=== PATIENT | male | born 1940 | race Caucasian/White ===

== ENCOUNTER → 2025-06-03 10:13 | Outpatient (REF) | payer MEDICARE, OTHER, SELFPAY ==
[2025-06-03] VITALS (7 sets, daily range): BP systolic 66–151; BP diastolic 61–80
[2025-06-03 10:47] LABS: Hematocrit 42.1 % (39.0-52.0); Hemoglobin 14.4 g/dL (13.0-18.0); Mean Corp Hgb Conc. 34.2 g/dL (33.0-37.0); Mean Corpuscular Volume 94.0 fL (80.0-94.0); Nucleated Red Blood Cells % 0 % (-); Platelet Count 210 10^3/uL (130-400); Red Cell Dist. Width 14.4 % (11.5-14.5)
[2025-06-03 11:04] LABS: INR 2.85; PT 29.8 Sec (11.4-14.6)
[2025-06-03 11:21] LABS: Troponin I < 0.012 ng/ml
[2025-06-03 11:22] LABS: ALT (SGPT) 26 U/L (0-50); AST (SGOT) 26 U/L (17-59); Albumin 4.6 g/dl (3.5-5.0); Blood Urea Nitrogen 14 mg/dl (9-20); Calcium 10.3 mg/dl (8.4-10.2); Carbon Dioxide 28 mmol/L (22-30); Chloride 100 mmol/L (98-107); Estimated Creatinine Clearance 88 ml/min; Glucose 105 mg/dl (70-99); Potassium 4.6 mmol/L (3.5-5.1); Sodium 136 mmol/L (135-145); Total Protein 7.3 g/dl (6.3-8.2); eGFR > 60.00
[2025-06-03 11:23] LABS: Alkaline Phosphatase 74 U/L (38-126)
[2025-06-03] MEDS: ANCEF 10 IV (11:53)
== END ==
LOC: RADI 10:13
PROVIDERS: ATTENDING PHYSICIAN Internal Medicine Hematology & Oncology; FAMILY PHYSICIAN Family Medicine; REFERRING PHYSICIAN Physician Assistant
DX: C44.329 Squamous cell carcinoma of skin of other parts of face (principal); Z79.01 Long term (current) use of anticoagulants; Z79.899 Other long term (current) drug therapy
CPT/HCPCS: 36561; 76937; 77001; 80053; 82248; 82550; 83880; 84443; 84484; 85025; 85610; 93005; 99152; 99153; C1788

== ENCOUNTER → 2025-06-13 08:01 | Outpatient (REF) | payer MEDICARE, OTHER, SELFPAY | LOC: WOUND 08:01 | PROVIDERS: ATTENDING PHYSICIAN Surgery | DX: S11.90XA Unspecified open wound of unspecified part of neck, initial encounter (principal); C44.92 Squamous cell carcinoma of skin, unspecified; C77.0 Secondary and unspecified malignant neoplasm of lymph nodes of head, face and neck; I25.10 Atherosclerotic heart disease of native coronary artery without angina pectoris; Z95.1 Presence of aortocoronary bypass graft; Z87.828 Personal history of other (healed) physical injury and trauma; X58.XXXA Exposure to other specified factors, initial encounter | CPT/HCPCS: 99205 ==

== ENCOUNTER 2025-06-13 08:41 | Emergency (ER) | payer MEDICARE, OTHER, SELFPAY ==
[2025-06-13 08:49] VITALS: BP 127/71
--- NOTE | 2025-06-13 09:43 | ED.GENMED ---
History of Present Illness
General
Chief Complaint: Wound Check/Suture Removal
Source: patient
Exam Limitations: none
Time Seen by Provider: 06/13/25 09:26
Nursing documentation reviewed up to this point in time: agreed with
History of Present Illness
History of Present Illness:
Note:
CHIEF COMPLAINT(S)
Wound that is oozing serous fluid.
HISTORY OF PRESENT ILLNESS
The patient is an 85-year-old male with a history of cancer which has resulted in a wound that has been oozing serous fluid. The patient reported that the lump started at approximately three centimeters and has become swollen. The wound has
previously been packed, and it was noted to have eroded tissue believed to be associated with cancer. The patient described the fluid as being 'serous' and noted that sometimes the fluid appeared as old blood. The recent treatment included
completing a week of immunotherapy. The patient monitors his own International Normalized Ratio (INR), and the most recent check showed a value of 2.8.
ADDITIONAL HISTORY OBTAINED FROM SOURCES OTHER THAN THE PATIENT
Dr. Sparks had previously packed the wound and suggested that the tools available limited further intervention. The patients spouse helps with changing the dressing and had noticed a sponge layer at the bottom of the dressing, which possibly
contributed to the disturbance and current oozing.
PHYSICAL EXAM
General: Alert, no acute distress.
Skin: Presenting wound is packed with no active bleeding.
Head: Normocephalic, atraumatic.
Neck: Supple.
Eye, Ears, Nose, Mouth, and Throat: Oral mucosa moist.
Cardiovascular: Normal peripheral perfusion, No edema.
Respiratory: Respirations are non-labored.
Gastrointestinal: Abdomen nondistended.
Back: Normal range of motion, Normal alignment.
Musculoskeletal: Normal range of motion, normal strength.
Neurological: Alert and oriented to person, place, time, and situation, No focal neurological deficit observed.
Psychiatric: Cooperative, appropriate mood & affect.
PLAN
The plan is to check the patients INR levels and monitor the site of the wound. Additional blood work will be conducted. The healthcare provider will assess if any changes in treatment or further interventions are necessary based on the test results.
DIFFERENTIAL DIAGNOSIS
The Differential Diagnosis includes, in no particular order and is not limited to:
1. Infection at the wound site
2. Cancerous erosion or progression
3. Hemorrhage or hematoma formation
4. Seroma
5. Lymphatic drainage disorder
6. Coagulopathy resulting from warfarin therapy
7. Poor wound healing due to underlying cancer
8. Skin necrosis or ulceration
9. Reaction to immune therapies or dressing materials
10. Dermatitis or other inflammatory skin condition
CARE-UPDATE
06/13/25 - 13:33
The patient presented with an oozing wound from the right neck mass. Bleeding was controlled, and the patient remained stable under observation in the ED. Discharge was planned with instructions to follow up with wound care specialists for further
management.
Disposition:
SUMMARY OF ENCOUNTER
The patient presented to the emergency department with an oozing wound from the right shoulder, believed to be associated with cancer. The wound care involved previous packing, and it was noted to have eroded tissue. The patient recently completed a
week of immunotherapy, and the most recent INR was 2.8. The wounds oozing was managed in the department, with bleeding controlled and the patient remaining stable under observation.
DISPOSITION
Discharge.
ASSESSMENT
The patients wound on the right shoulder is likely related to cancerous erosion, with the possibility of infection or poor wound healing due to underlying conditions.
PLAN
The plan includes monitoring the wound site and checking INR levels. Additional blood work may be conducted to assess the condition further. The patient will follow up with wound care specialists for ongoing management.
INDEPENDENT REVIEW OF LABS AND INTERPRETATION OF TESTS
My independent review of CBC is stable.
PATIENT EDUCATION AND COUNSELING
The patient was given return precautions and advised on the importance of follow-up with wound care specialists for further management.
FOLLOW-UP INSTRUCTIONS
The patient is instructed to follow up with wound care specialists and to return to the emergency department if symptoms worsen or new symptoms arise.
MEDICAL DECISION MAKING
Chronic conditions affecting care: History of cancer, possibly related to the wound condition.
-Complexity of Data Reviewed: The differential diagnosis considered includes infection at the wound site, cancerous erosion or progression, hemorrhage or hematoma formation, seroma, lymphatic drainage disorder, coagulopathy resulting from warfarin
therapy, poor wound healing due to underlying cancer, skin necrosis or ulceration, and reaction to immune therapies or dressing materials.
-Data:
Category 1: Non-emergency department records were reviewed, and the patients outpatient INR records were examined.
Category 2: Clinical information was obtained from the patients spouse, noting the condition of the dressing and wound.
-Risk: Consideration of Admission/Observation: Escalation of care including admission/observation was considered given the complexity and risk of the patients presenting complaint, exam findings, and/or their underlying comorbidities. However,
ultimately, the patient is safe for outpatient management with close follow-up. Reasoning: Work-up reassuring, does not reveal any acute life/organ-threatening processes, patients symptoms well controlled upon reevaluation, reexamination is
reassuring, vitals are stable, patient agreeable with discharge, reliable for follow-up.
DIAGNOSIS
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 Possible infection of the skin and subcutaneous tissue (ICD-10: L08.9).
Phy Exam
Physical Exam
Physical Exam:
.
Course
Orders/Labs/Results
Orders:
Orders
06/13/25 10:33
Complete Blood Count/With Diff Urgent
Prothrombin Time Urgent
Abnormal Lab Results
06/13/25
10:33
WBC 11.7 H 10^3/uL
(4.8-10.8)
RBC 4.41 L 10^6/uL
(4.70-6.10)
MCH 32.0 H pg
(27.0-31.0)
RDW 14.8 H %
(11.5-14.5)
Absolute Neuts (auto) 9.6 H 10^3/uL
(1.4-6.5)
Absolute Lymphs (auto) 1.0 L 10^3/uL
(1.2-3.4)
Absolute Monos (auto) 0.9 H 10^3/uL
(0.1-0.6)
Neutrophils % 82.2 H %
(42.2-75.2)
Lymphocytes % 8.5 L %
(20.5-51.1)
PT 34.5 H Sec
(11.4-14.6)
06/13/25 10:33
Vital Signs
Initial and Last Documented VS:
Initial Vital Signs
Temp Pulse Resp BP Pulse Ox
98.1 F 75 18 127/71 98
06/13/25 08:49 06/13/25 08:49 06/13/25 08:49 06/13/25 08:49 06/13/25 08:49
Last Documented Vital Signs
Temp Pulse Resp BP Pulse Ox
98.1 F 75 18 127/71 98
06/13/25 08:49 06/13/25 08:49 06/13/25 08:49 06/13/25 08:49 06/13/25 09:44
*Pulse Oximetry
SaO2: 98
Oxygen Mode of Delivery: Room air
Patient hypoxic: no
*Critical Care Note
Total Time (30-74mins, 75-104mins- exclusive of procedures): Not Applicable
ED Attending Note
-
Portions of this chart may have been created with voice recognition software.� Occasional wrong word or��sound alike� substitutions may have occurred due to the inherent limitations of voice recognition software.
Discharge Plan
Departure
Patient Disposition: Home (Routine Discharge)
Date of Disposition: 06/13/25
Time of Disposition: 13:20
Patient with high blood pressure during this ER visit?: Yes
Condition: Good
Discharge Problem:
Hemorrhage from wound
Instructions: Wound care - ED (DC), BLOOD PRESSURE
Prescriptions:
No Action
atorvastatin 80 mg Tablet
80 mg PO QPM
clopidogrel [Plavix] 75 mg Tablet
75 mg PO DAILY
warfarin 3 mg Tablet
3 mg PO DAILY
sotalol 120 mg Tablet
120 mg PO BID
gabapentin 300 mg Tablet
600 mg PO TID
Referrals:
Benjie Turner MD [Provider Group] - Call in 1-3 days for appt
Mary Johnson DO [Family Provider, Family Practice] - Call in 1-3 days for appt
Interventions
Interventions:
*Risk Screen - Suicide Last Done: 06/13/25 08:49
Discharge Date and Time
Print Language: CROATIAN
[2025-06-13 10:40] LABS: Hematocrit 41.2 % (39.0-52.0); Hemoglobin 14.1 g/dL (13.0-18.0); Mean Corp Hgb Conc. 34.2 g/dL (33.0-37.0); Mean Corpuscular Volume 93.4 fL (80.0-94.0); Nucleated Red Blood Cells % 0 % (-); Platelet Count 239 10^3/uL (130-400); Red Cell Dist. Width 14.8 % (11.5-14.5)
[2025-06-13 10:51] LABS: INR 3.45; PT 34.5 Sec (11.4-14.6)
[2025-06-13 12:00] VITALS: BP 134/74
[2025-06-13 13:57] VITALS: BP 129/86
== END 2025-06-13 13:57 | disposition home or self-care (01) ==
LOC: EMR 08:41
PROVIDERS: EMERGENCY PHYSICIAN Emergency Medicine; FAMILY PHYSICIAN Family Medicine
DX: S41.001A Unspecified open wound of right shoulder, initial encounter (principal); X58.XXXA Exposure to other specified factors, initial encounter
CPT/HCPCS: 99283; 85025; 85610

== ENCOUNTER → 2025-07-01 16:20 | Outpatient (REF) | payer MEDICARE, OTHER, SELFPAY ==
[2025-07-01 15:14] LABS: Hematocrit 37.2 % (39.0-52.0); Hemoglobin 12.5 g/dL (13.0-18.0); Mean Corp Hgb Conc. 33.6 g/dL (33.0-37.0); Mean Corpuscular Volume 95.9 fL (80.0-94.0); Platelet Count 371 10^3/uL (130-400); Red Cell Dist. Width 14.3 % (11.5-14.5)
[2025-07-01 16:01] LABS: ALT (SGPT) 37 U/L (0-50); AST (SGOT) 36 U/L (17-59); Albumin 3.5 g/dl (3.5-5.0); Alkaline Phosphatase 71 U/L (38-126); Blood Urea Nitrogen 16 mg/dl (9-20); Calcium 9.5 mg/dl (8.4-10.2); Carbon Dioxide 31 mmol/L (22-30); Chloride 99 mmol/L (98-107); Glucose 112 mg/dl (70-99); Magnesium 1.9 mg/dl (1.6-2.3); Potassium 4.5 mmol/L (3.5-5.1); Sodium 136 mmol/L (135-145); Total Protein 6.2 g/dl (6.3-8.2); eGFR > 60.00
== END ==
LOC: OIDL 16:20
PROVIDERS: ATTENDING PHYSICIAN Internal Medicine Hematology & Oncology
DX: C44.329 Squamous cell carcinoma of skin of other parts of face (principal)
CPT/HCPCS: 80053; 83735; 85025

== ENCOUNTER → 2025-07-10 15:51 | Outpatient (REF) | payer MEDICARE, SELFPAY ==
[2025-07-10 11:36] LABS: Hematocrit 36.7 % (39.0-52.0); Hemoglobin 12.5 g/dL (13.0-18.0); Mean Corp Hgb Conc. 34.1 g/dL (33.0-37.0); Mean Corpuscular Volume 95.1 fL (80.0-94.0); Platelet Count 326 10^3/uL (130-400); Red Cell Dist. Width 13.8 % (11.5-14.5)
== END ==
LOC: OIDL 15:51
PROVIDERS: ATTENDING PHYSICIAN Nurse Practitioner Adult Health
DX: C44.329 Squamous cell carcinoma of skin of other parts of face (principal)
CPT/HCPCS: 85025

== ENCOUNTER → 2025-07-24 11:24 | Outpatient (REF) | payer MEDICARE, SELFPAY ==
[2025-07-24 12:03] LABS: Blood Urea Nitrogen 36 mg/dl (9-20); Calcium 8.5 mg/dl (8.4-10.2); Carbon Dioxide 31 mmol/L (22-30); Chloride 103 mmol/L (98-107); Glucose 116 mg/dl (70-99); Potassium 3.7 mmol/L (3.5-5.1); Sodium 138 mmol/L (135-145); eGFR > 60.00
== END ==
LOC: OIDL 11:24
PROVIDERS: ATTENDING PHYSICIAN Internal Medicine Hematology & Oncology
DX: C44.329 Squamous cell carcinoma of skin of other parts of face (principal)
CPT/HCPCS: 80048

== ENCOUNTER → 2025-07-30 16:29 | Outpatient (REF) | payer MEDICARE, SELFPAY ==
[2025-07-30 09:00] LABS: Hematocrit 26.5 % (39.0-52.0); Hemoglobin 9.4 g/dL (13.0-18.0); Mean Corp Hgb Conc. 35.5 g/dL (33.0-37.0); Mean Corpuscular Volume 95.0 fL (80.0-94.0); Platelet Count 146 10^3/uL (130-400); Red Cell Dist. Width 13.8 % (11.5-14.5)
[2025-07-30 09:59] LABS: ALT (SGPT) 51 U/L (0-50); AST (SGOT) 32 U/L (17-59); Albumin 3.6 g/dl (3.5-5.0); Alkaline Phosphatase 69 U/L (38-126); Blood Urea Nitrogen 31 mg/dl (9-20); Calcium 8.0 mg/dl (8.4-10.2); Carbon Dioxide 31 mmol/L (22-30); Chloride 98 mmol/L (98-107); Glucose 120 mg/dl (70-99); Magnesium 1.0 mg/dl (1.6-2.3); Potassium 3.6 mmol/L (3.5-5.1); Sodium 136 mmol/L (135-145); Total Protein 6.1 g/dl (6.3-8.2); eGFR > 60.00
== END ==
LOC: OIDL 16:29
PROVIDERS: ATTENDING PHYSICIAN Internal Medicine Hematology & Oncology
DX: C44.329 Squamous cell carcinoma of skin of other parts of face (principal)
CPT/HCPCS: 80053; 83735; 85025

== ENCOUNTER → 2025-08-06 15:02 | Outpatient (REF) | payer MEDICARE, SELFPAY ==
[2025-08-06 11:00] LABS: Hematocrit 26.4 % (39.0-52.0); Hemoglobin 9.0 g/dL (13.0-18.0); Mean Corp Hgb Conc. 34.1 g/dL (33.0-37.0); Mean Corpuscular Volume 96.7 fL (80.0-94.0); Platelet Count 158 10^3/uL (130-400); Red Cell Dist. Width 13.9 % (11.5-14.5)
[2025-08-06 11:53] LABS: ALT (SGPT) 96 U/L (0-50); AST (SGOT) 57 U/L (17-59); Albumin 4.0 g/dl (3.5-5.0); Alkaline Phosphatase 72 U/L (38-126); Blood Urea Nitrogen 33 mg/dl (9-20); Calcium 7.9 mg/dl (8.4-10.2); Carbon Dioxide 32 mmol/L (22-30); Chloride 96 mmol/L (98-107); Glucose 135 mg/dl (70-99); Magnesium 0.9 mg/dl (1.6-2.3); Potassium 3.8 mmol/L (3.5-5.1); Sodium 135 mmol/L (135-145); Total Protein 6.5 g/dl (6.3-8.2); eGFR > 60.00
== END ==
LOC: OIDL 15:02
PROVIDERS: ATTENDING PHYSICIAN Internal Medicine Hematology & Oncology
DX: C44.329 Squamous cell carcinoma of skin of other parts of face (principal)
CPT/HCPCS: 80053; 83735; 85025

== ENCOUNTER → 2025-08-11 13:57 | Outpatient (REF) | payer MEDICARE, SELFPAY ==
[2025-08-11 15:00] LABS: Magnesium 2.4 mg/dl (1.6-2.3)
== END ==
LOC: OIDL 13:57
PROVIDERS: ATTENDING PHYSICIAN Internal Medicine Hematology & Oncology
DX: C44.329 Squamous cell carcinoma of skin of other parts of face (principal)
CPT/HCPCS: 83735

== ENCOUNTER → 2025-08-14 12:47 | Outpatient (REF) | payer MEDICARE, SELFPAY ==
[2025-08-14 12:54] LABS: Hematocrit 22.5 % (39.0-52.0); Hemoglobin 7.7 g/dL (13.0-18.0); Mean Corp Hgb Conc. 34.2 g/dL (33.0-37.0); Mean Corpuscular Volume 97.4 fL (80.0-94.0); Platelet Count 136 10^3/uL (130-400); Red Cell Dist. Width 14.3 % (11.5-14.5)
[2025-08-14 13:40] LABS: ALT (SGPT) 97 U/L (0-50); AST (SGOT) 53 U/L (17-59); Albumin 3.5 g/dl (3.5-5.0); Alkaline Phosphatase 72 U/L (38-126); Blood Urea Nitrogen 33 mg/dl (9-20); Calcium 8.2 mg/dl (8.4-10.2); Carbon Dioxide 31 mmol/L (22-30); Chloride 94 mmol/L (98-107); Glucose 153 mg/dl (70-99); Magnesium 1.3 mg/dl (1.6-2.3); Potassium 3.7 mmol/L (3.5-5.1); Sodium 129 mmol/L (135-145); Total Protein 6.0 g/dl (6.3-8.2); eGFR > 60.00
== END ==
LOC: CLAB 12:47
PROVIDERS: ATTENDING PHYSICIAN Internal Medicine Hematology & Oncology
DX: C44.329 Squamous cell carcinoma of skin of other parts of face (principal)
CPT/HCPCS: 80053; 83735; 85025

== ENCOUNTER → 2025-08-15 11:23 | Outpatient (REF) | payer MEDICARE, SELFPAY ==
[2025-08-15 11:44] LABS: Hematocrit 23.1 % (39.0-52.0); Hemoglobin 7.9 g/dL (13.0-18.0); Mean Corp Hgb Conc. 34.2 g/dL (33.0-37.0); Mean Corpuscular Volume 98.3 fL (80.0-94.0); Nucleated Red Blood Cells % 0 % (-); Platelet Count 178 10^3/uL (130-400); Red Cell Dist. Width 14.6 % (11.5-14.5)
[2025-08-15 12:08] LABS: ALT (SGPT) 90 U/L (0-50); AST (SGOT) 48 U/L (17-59); Albumin 3.7 g/dl (3.5-5.0); Alkaline Phosphatase 71 U/L (38-126); Blood Urea Nitrogen 29 mg/dl (9-20); Calcium 8.7 mg/dl (8.4-10.2); Carbon Dioxide 31 mmol/L (22-30); Chloride 95 mmol/L (98-107); Glucose 144 mg/dl (70-99); Magnesium 1.4 mg/dl (1.6-2.3); Potassium 3.9 mmol/L (3.5-5.1); Sodium 133 mmol/L (135-145); Total Protein 6.2 g/dl (6.3-8.2); eGFR > 60.00
== END ==
LOC: CLAB 11:23
PROVIDERS: ATTENDING PHYSICIAN Nurse Practitioner Acute Care; REFERRING PHYSICIAN Internal Medicine Hematology & Oncology
DX: C44.329 Squamous cell carcinoma of skin of other parts of face (principal)
CPT/HCPCS: 80053; 83735; 85025

== ENCOUNTER 2025-08-18 10:41 | Outpatient (RCR) | payer MEDICARE, SELFPAY ==
[2025-08-18 11:38] VITALS: BP 136/70
[2025-08-18 11:55] VITALS: BP 134/72
[2025-08-18 14:01] VITALS: BP 136/73
== END 2025-09-14 23:59 | disposition home or self-care (01) ==
LOC: OID 10:41
PROVIDERS: ATTENDING PHYSICIAN Internal Medicine Hematology & Oncology
DX: C44.329 Squamous cell carcinoma of skin of other parts of face (principal)
CPT/HCPCS: 36430; 86850; 86900; 86901; 86920; P9016

== ENCOUNTER → 2025-08-21 11:06 | Outpatient (REF) | payer MEDICARE, SELFPAY ==
[2025-08-21 12:03] LABS: ALT (SGPT) 134 U/L (0-50); AST (SGOT) 73 U/L (17-59); Albumin 3.6 g/dl (3.5-5.0); Alkaline Phosphatase 64 U/L (38-126); Blood Urea Nitrogen 41 mg/dl (9-20); Calcium 8.1 mg/dl (8.4-10.2); Carbon Dioxide 32 mmol/L (22-30); Chloride 91 mmol/L (98-107); Glucose 170 mg/dl (70-99); Magnesium 1.0 mg/dl (1.6-2.3); Potassium 3.4 mmol/L (3.5-5.1); Sodium 129 mmol/L (135-145); Total Protein 6.2 g/dl (6.3-8.2); eGFR > 60.00
== END ==
LOC: CLAB 11:06
PROVIDERS: ATTENDING PHYSICIAN Internal Medicine Hematology & Oncology
DX: C44.329 Squamous cell carcinoma of skin of other parts of face (principal)
CPT/HCPCS: 80053; 83735